=== PATIENT | female | born 1935 | race Caucasian/White ===

== ENCOUNTER 2019-03-01 04:34 | Emergency (ER) | payer MEDICARE, BC ==
[~2019-03-01] VITALS: Ht 160 cm; Wt 56.2 kg
--- NOTE | 2019-03-01 05:12 | NUR ---
PT CAME TO ER BED 9 C/O HEADACHE AND DIARRHEA SINCE 399. PT STATES THAT SHE HAS BEEN HAVING THIS FOR THE LAST 2x DAYS. AAOX4. NOT IN ANY DISTRESS. NO SOB. BREATHING EVENLY AND UNLABORED. CONNECTED TO MONITOR
[2019-03-01] MEDS ORDERED: ACETAMINOPHEN ES 500 MG TABLET ONE (05:34)
--- NOTE | 2019-03-01 05:37 | NUR ---
PT TOOK ONLY 500MG OF TYLENOL. PT THREW OTHER 500MG PILL TO THE SIDE "I ONLY JUST WANT ONE." DR. MARTINEZ NOTIFIED OF PT'S BEHAVIOR.
--- NOTE | 2019-03-01 05:45 | NUR ---
DR. MARTINEZ SPOKE W/ PATIENT FOR RE-EVALUATION.
[2019-03-01] MEDS ORDERED: ACETAMINOPHEN ES 500 MG TABLET PO ONE (06:00)
[2019-03-01] MEDS ORDERED: IV NS 0.9% 1,000 ML BAG IV ONE (07:00)
--- NOTE | 2019-03-01 07:03 | NUR ---
PATIENT REFUSED TO HAVE AN IV AND AND IV FLUIDS.
--- NOTE | 2019-03-01 07:27 | NUR ---
Pt refused chest x ray.
--- NOTE | 2019-03-01 07:27 | NUR ---
pt refusing xray. ok w/ ct scan. md dave aware.
[2019-03-01 07:29] LABS: BASOPHILS % (AUTO) 0.8 % (0.0-2.0); EOSINOPHILS % (AUTO) 3.4 % (0.0-6.0); HEMATOCRIT 42 % (33-45); LYMPHOCYTES # (AUTO) 1.5 /CMM (0.8-4.8); LYMPHOCYTES % (AUTO) 28.2 % (20.0-44.0); MEAN CORPUSCULAR HGB CONC 33 g/dl (31.0-36.0); MEAN CORPUSCULAR VOLUME 89 fL (82-100); MONOCYTES # (AUTO) 0.7 /CMM (0.1-1.30); MONOCYTES % (AUTO) 12.2 % (2.0-12.0); NEUTROPHILS % (AUTO) 55.4 % (43.0-81.0); PLATELET COUNT (AUTO) 224 /CMM (150-450); RED BLOOD CELL COUNT(AUTO) 4.78 MIL/uL (4.0-5.2); WHITE BLOOD COUNT (AUTO) 5.4 K/uL (4.3-11.0)
[2019-03-01 07:37] LABS: ALANINE AMINOTRANSFERASE 27 U/L (12-78); ALBUMIN 3.4 g/dL (3.4-5.0); ALKALINE PHOSPHATASE 64 U/L (46-116); ASPARTATE AMINOTRANSFERASE 23 U/L (15-37); BILIRUBIN,DIRECT 0.1 mg/dL (0.0-0.2); BILIRUBIN,TOTAL 0.4 mg/dL (0.2-1.0); CALCIUM, SERUM 9.4 mg/dL (8.5-10.1); CARBON DIOXIDE 30 mmol/L (21-32); CHLORIDE 105 mmol/L (98-107); CREATININE 0.9 mg/dL (0.6-1.3); GLUCOSE 84 mg/dL (74-106); POTASSIUM 4.2 mmol/L (3.5-5.1); SODIUM SERUM 142 mmol/L (136-145); TOTAL PROTEIN, SERUM 6.8 g/dL (6.4-8.2); UREA NITROGEN, BLOOD 15 mg/dL (7-18)
[2019-03-01 08:12] LABS: THYROID STIMULATING HORMONE 2.902 uIU/mL (0.358-3.74)
[2019-03-01 09:02] LABS: APPEARANCE,URINE Clear (CLEAR); BILIRUBIN,URINE Negative (NEGATIVE); BLOOD, URINE Negative Ery/uL (NEGATIVE); COLOR,URINE Yellow (YELLOW); KETONES,URINE Trace (NEGATIVE); LEUKOCYTE ESTERASE ,URINE Negative (NEGATIVE); NITRITE, URINE Negative (NEGATIVE); PROTEIN,URINE Negative (NEGATIVE); UGLUCOSE Negative (NEGATIVE); UROBILINOGEN,URINE 0.2 EU/dL (0.2)
[2019-03-01 09:40] VITALS: BP 119/65
== END 2019-03-01 09:45 | disposition home or self-care (01) ==
LOC: ER 04:35
DX: G44.229 Chronic tension-type headache, not intractable (principal); B34.8 Other viral infections of unspecified site; R19.7 Diarrhea, unspecified; Z90.89 Acquired absence of other organs
CPT/HCPCS: 36415; 70450-TC; 80048-TC; 80076-TC; 81000-TC; 84443-TC; 84484-TC; 85025-TC; 85730-TC; J7030

== ENCOUNTER 2022-12-29 14:38 | Emergency (ER) | payer MEDICARE, BC ==
[~2022-12-29] VITALS: Ht 160 cm; Wt 59.0 kg
[2022-12-29] MEDS ORDERED: LET SOLN TOPICAL 8 ML UDC TP ONE (15:28)
[2022-12-29 16:24] VITALS: BP 139/65; TEMP 98; O2SAT 97
== END 2022-12-29 16:14 | disposition home or self-care (01) ==
LOC: ER 14:53
DX: S01.01XA Laceration without foreign body of scalp, initial encounter (principal); Z90.89 Acquired absence of other organs; Z88.0 Allergy status to penicillin; W18.30XA Fall on same level, unspecified, initial encounter; Y93.89 Activity, other specified; Y92.89 Other specified places as the place of occurrence of the external cause; Y99.8 Other external cause status

== ENCOUNTER 2023-10-30 10:03 | Emergency (ER) | payer MEDICARE, BC ==
[~2023-10-30] VITALS: Ht 167.6 cm; Wt 56.7 kg
[2023-10-30 11:30] VITALS: BP 119/69; TEMP 98.5; O2SAT 96
== END 2023-10-30 11:31 | disposition home or self-care (01) ==
LOC: ER 10:10
DX: S60.011A Contusion of right thumb without damage to nail, initial encounter (principal); S20.312A Abrasion of left front wall of thorax, initial encounter; Z90.49 Acquired absence of other specified parts of digestive tract; Z88.0 Allergy status to penicillin; Z87.19 Personal history of other diseases of the digestive system; V43.52XA Car driver injured in collision with other type car in traffic accident, initial encounter; Y93.89 Activity, other specified; Y92.488 Other paved roadways as the place of occurrence of the external cause; Y99.8 Other external cause status